=== PATIENT | male | born 2005 | race Caucasian/White ===

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

== ENCOUNTER 2024-12-10 12:59 | Emergency (ER) | payer OTHER, SELFPAY ==
[2024-12-10 13:03] VITALS: BP 135/85; PULSE 82; RESP 18; TEMP 36.4; O2SAT 100
--- NOTE | 2024-12-10 14:23 | ED.SKABFB ---
HPI - Skin/Abscess/Foreign Bdy General Chief complaint: Skin/Abscess/Foreign Body Stated complaint: rash Time Seen by Provider: 12/10/24 13:54 History of Present Illness HPI narrative: Patient is a 19-year-old male who presents ER with rash to the arm pit/chest/face. Ongoing over last 5 days. Has been on oral prednisone and this is day 5. Spread to the face today. Very pruritic. He has taken Benadryl with helps with the itching but not the rash. No fevers or chills or sweats. No difficulty breathing or swallowing. He is not on any other oral medications at baseline. 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 No perfumes/clone use. No new body lotions or face lotions. No outdoor allergen exposures or animal exposures. Related Data Allergies Allergy/AdvReac Type Severity Reaction Status Date / Time No Known Allergies Allergy Verified 12/10/24 13:06 Review of Systems Review of Systems: All systems reviewed & are unremarkable except as noted in HPI and below Constitutional: Constitutional: Reports no additional constitutional complaints ENT: Reports system reviewed and no additional complaints, except as documented Cardiovascular: Cardiovascular: Reports no additional cardiovascular complaints Respiratory: Respiratory: Reports no additional respiratory complaints Integumentary/Breasts: Skin/Breast: Reports pruritus, Reports erythema, Reports rash and Denies skin ulcer PMFSH Past Medical History Medical History (Updated 12/10/24 @ 14:31 by Raymond Diaz MD) Healthy adult male Surgical History Surgical History (Updated 12/10/24 @ 14:24 by Raymond Diaz MD) No pertinent past surgical history Exam Narrative: GENERAL: Well-appearing, well-nourished, and in no acute distress. HEAD: Normocephalic, atraumatic. ENT: Mucous membranes moist. EXTREMITIES: Normal range of motion. No edema. SKIN: Warm, dry. Urticarial rash of the armpits bilaterally as well as the chest and upper back and the face. No significant excoriations. No pustules or vesicles. Minimal redness. NEURO: Alert and oriented x3. PSYCH: Normal mood and affect. Course Course Emergency Course: May have idiopathic urticaria. Will switch Benadryl to Vistaril and on famotidine. Continue home steroid. Follow-up with PCP. Patient reports increased stress at home including financial issues and relationship issues and this could be provoking his symptoms. Vital Signs Vital signs: Vital Signs Temperature 97.5 F L 12/10/24 13:03 Pulse Rate 82 12/10/24 13:03 Respiratory Rate 18 12/10/24 13:03 Blood Pressure 135/85 12/10/24 13:03 Pulse Oximetry 100 12/10/24 13:03 Oxygen Delivery Room Air 12/10/24 13:03 Temperature 97.5 F L 12/10/24 13:03 Pulse Rate 82 12/10/24 13:03 Respiratory Rate 18 12/10/24 13:03 Blood Pressure 135/85 12/10/24 13:03 Pulse Oximetry 100 12/10/24 13:03 Oxygen Delivery Room Air 12/10/24 13:03 Discharge Plan Discharge Clinical Impression: Urticaria Patient Disposition: Home Condition: Stable Instructions: Urticaria (ED) Additional Instructions: Return ER if you cannot breathe, cannot swallow, your tongue is swollen, your lips are swollen, or you have additional concerns. Patient Language: Kinyarwanda Prescriptions: New hydroxyzine pamoate 25 mg capsule 25 mg PO TID PRN (Reason: itching) Qty: 20 0RF cetirizine [Zyrtec] 10 mg tablet 10 mg PO DAILY Qty: 10 0RF famotidine 20 mg tablet 20 mg PO BID Qty: 14 0RF No Action Ciprodex 0.3-0.1 % drops,suspension 4 drop RIGHTEAR Q12H 7 Days Qty: 7.5 0RF Follow-up/Referrals: Audrey Hernandez DO [Physician, Family Practice] - 1 Week UNKNOWN,DOCTOR [Primary Care Provider]
== END 2024-12-10 14:51 | disposition home or self-care (01) ==
LOC: ANHED 14:43
PROVIDERS: Emergency Provider Emergency Medicine; PCP Nurse Practitioner
DX: L50.9 Urticaria, unspecified (principal)
CPT/HCPCS: 99283